=== PATIENT | male | born 1975 | race Caucasian/White ===

== ENCOUNTER 2018-06-19 12:02 | Day surgery (SDC) | payer MEDICARE ==
[2018-06-19] MEDS ORDERED: Marcaine 0.5% SDV 10 ML IJ ONE (12:03)
[2018-06-19] MEDS ORDERED: DIPRIVAN 200 MG/20 ML IV ONE (12:03)
[2018-06-19] MEDS ORDERED: Depo-Medrol 40 MG/ML IM ONE (12:03)
[2018-06-19] MEDS ORDERED: Lactated Ringers 1,000 ML IV ONE (12:40)
--- NOTE | 2018-06-19 15:22 | XRAY ---
Indication: Posterior 2/3 rib injection. Intraoperative fluoroscopy was provided for 26 seconds. 3 digital spot images submitted for interpretation demonstrates needle tips projecting over the posterior arcs of the 2nd and 3rd ribs. Correlate with intraoperative findings/report.
--- NOTE | 2018-06-24 14:00 | XRAY ---
26 seconds fluoroscopy time in surgery for injection of posterior 2nd and 3rd ribs.
== END 2018-06-19 13:50 | disposition home or self-care (01) ==
LOC: SDC-PAIN 12:02
PROVIDERS: ATTEND Psychiatry & Neurology Pain Medicine
DX: M54.6 Pain in thoracic spine (principal)
CPT/HCPCS: 64421; 71045; 76000; J1030; J2704

== ENCOUNTER 2018-09-02 11:06 | Observation (INO) | payer MEDICARE ==
--- NOTE | 2018-09-02 08:39 | HP ---
DATE OF SURGERY: 09/02/2018 HISTORY OF PRESENT ILLNESS: The patient is a 43 year-old with right upper quadrant pain on and off for a couple of weeks. No nausea or vomiting. Bowel movements normal. He had ultrasound showing cholelithiasis. He has history of some muscular dystrophy, history of back pain. PAST MEDICAL HISTORY: Includes FSHD muscular dystrophy. PAST SURGICAL HISTORY: He denied any prior abdominal surgeries. He does have a laxity of his abdominal wall secondary to muscular dystrophy. MEDICATIONS: Gabapentin, CoQ10, vitamin D, multivitamins, tramadol, [place] PRN, testosterone. ALLERGIES: NKDA. FAMILY HISTORY: Myocardial infarction and stroke. SOCIAL HISTORY: Occasional few drinks every couple weeks, denies alcohol abuse. REVIEW OF SYSTEMS: Twelve systems reviewed. No chest pain or palpitations other systems negative or noncontributory as above and per preadmission questionnaire. PHYSICAL EXAMINATION: GENERAL: No acute distress. HEENT: Sclerae nonicteric. NECK: No JVD. CHEST: Equal excursion, nonlabored breathing. CVS: Regular rate and rhythm. ABDOMEN: Soft. No peritoneal signs. He had some mild tenderness right upper quadrant. EXTREMITIES: No edema. NEURO: Alert, oriented, moving extremities symmetrically. No gross motor deficits noted. LAB DATA AND TESTS: When he was in the emergency room he had normal liver function test and lipase. Total protein elevated at 8.5. Hemoglobin 16. Ultrasound as mentioned above. IMPRESSION: Symptomatic cholelithiasis, chronic cholecystitis. I feel the patient will benefit from cholecystectomy. Risks and benefits explained in detail including but not limited to bleeding or infection, risk of trocar injury or hernia, small risk of bowel, bladder or blood vessel injury, small risk of bile leak, bile duct injury, retained stone or sludge possibly requiring ERCP or open procedure, general risk of anesthesia, deep venous thrombosis, pulmonary embolism, pneumonia, perioperative risk of aches, pains, bloating, constipation and/or loose stools possibly chronic in nature. General risk of anesthesia, deep venous thrombosis, pulmonary embolism or pneumonia, possibility that this procedure may not improve his symptoms. He may need further work up and/or testing, other studies or procedures. He understands and agrees to the planned procedure, will proceed with outpatient laparoscopic cholecystectomy possible open.
[~2018-09-02 11:06] MED LIST: Lactated Ringers 1,000 ML IV ONE; Sensorcaine 0.25% 10 ML ONE
[2018-09-02] MEDS: Lactated Ringers 1,000 ML IV SCH ×2 (11:20→16:31)
[2018-09-02] MEDS ORDERED: MEFOXIN 2 GM PREMIX** 2 GM/50 ML ML IV SCH (12:00)
[2018-09-02] MEDS ORDERED: APRESOLINE 20 MG/ML INJ IV ONE (12:43)
[2018-09-02] MEDS ORDERED: SUBLIMAZE 250 MCG/5 ML IV ONE (12:43)
[2018-09-02] MEDS ORDERED: MORPHINE SULFATE 10 MG/ML IV ONE (12:43)
[2018-09-02] MEDS ORDERED: BRIDION 200MG/2ML IV ONE (12:43)
[2018-09-02] MEDS ORDERED: Zemuron 100 MG/10 ML IV ONE (12:43)
[2018-09-02] MEDS ORDERED: DIPRIVAN 200 MG/20 ML IV ONE (12:43)
[2018-09-02] MEDS ORDERED: Propofol 1000 mg/100 ml Bottle IV ONE (12:43)
[2018-09-02] MEDS ORDERED: Versed 2 MG/2 ML Injection IV ONE (12:43)
[2018-09-02] MEDS ORDERED: SUBLIMAZE 100 MCG/2 ML IV ONE (12:43)
[2018-09-02] MEDS ORDERED: Zofran 4 MG/2 ML VIAL IV ONE (12:43)
[2018-09-02] MEDS ORDERED: BREVIBLOC 100 MG/10 ML IV ONE (12:43)
[2018-09-02] MEDS ORDERED: DILAUDID 2 MG INJECTION ONE (14:27)
[2018-09-02] MEDS ORDERED: MORPHINE SULFATE 2 MG INJ IV PRN (15:17)
[2018-09-02] MEDS ORDERED: Zofran 4 MG/2 ML VIAL IV PRN (15:18)
--- NOTE | 2018-09-02 15:26 | OP ---
SURGERY DATE/TIME: 09/02/2018 1248 PREOPERATIVE DIAGNOSIS: Acute exacerbation of chronic cholecystitis. POSTOPERATIVE DIAGNOSIS: Acute exacerbation of chronic cholecystitis. PROCEDURE: Laparoscopic cholecystectomy. SURGEON: Dr. Giles Marvin. ANESTHESIA: General. ESTIMATED BLOOD LOSS: Minimal. INDICATIONS: As noted above. Risks and benefits explained in detail but not limited to and consent obtained. He wanted to go ahead and proceed accepting small risk of oozing or bleeding. DESCRIPTION OF PROCEDURE AND FINDINGS: The patient was taken to the OR. General anesthesia induced. He accepted the increased risk of bleeding or oozing if he failed to follow instructions in the holding area discussed preoperatively. He was taken to the OR. General anesthesia induced. Abdomen prepped and draped in the usual sterile fashion. After official time out and no disagreement with planned procedure, a transverse incision made at the supraumbilical area. Fascia grasped and pulled upward. Veress needle inserted and tested with saline. Pneumoperitoneum accomplished insufflating opening pressure of 0-15. An 11 mm bladeless port and camera inserted without difficulty followed by two - 5 mm right upper quadrant ports and 11 mm epigastric port. The gallbladder was quite distended. It was tense, difficult to grasp. It was necessary to make a little counter incision with Veress needle aspirating 23 cc of bile out of the gallbladder. The gallbladder is able to be more easily grasped. Extensive chronic inflammatory reaction. Posterior, lateral to anterior fashion slowly and carefully cystic duct, infundibular junction slowly well skeletonized until critical view obtained both anterior and posteriorly until critical view obtained. Cystic duct clipped x3 and divided in usual fashion. The cystic artery isolated directly on the gallbladder wall. It was clipped x3 and divided in the usual fashion. Gallbladder was slowly and carefully dissected free from its dense almost concrete reaction to liver bed staying directly on the gallbladder wall clipping additional oozing side branches of the cystic artery as necessary. The gallbladder is quite friable with just the graspers seeping some bile and some small stone/sludge and this was suction irrigated as well as possible. It took some time but slowly and carefully the gallbladder was dissected free from the liver bed. Just prior to releasing from the final attachments to anterior edge of liver clips noted in place in cystic duct and cystic artery stumps. No signs of any active bleeding or bile leakage in the liver bed and cystic duct stump itself or cystic arteries. The gallbladder is released from its final attachments placed in as Pleatman sac pulled up and out the epigastrium. The Pleatman sac actually broke for a usual case but the gallbladder was able to be carefully mobilized upwards, removed and passed off. Fascia defect closed with puncture closure device with 0 Vicryl placed at the end of the procedure. Port is replaced. Copious amount of irrigation accomplished laterally. Subhepatic space irrigated until clear. A few little tiny stones/sludge were retrieved, suctioned and irrigated. Irrigated as clear as possible. Because of the extensive inflammatory reaction and had been on NSAID's, I felt would benefit from temporary REUBEN drain placement to decrease risk of collection formation placed in subhepatic space out through lateral port incision, secured with PDS suture and placed to bulb suction. Pneumoperitoneum decompressed. The wound was irrigated out. Skin incision closed with 4-0 Vicryl. Steri-Strips and sterile dressing applied. 0.25% Marcaine local injected along the skin incision fascial defect. The patient tolerated the procedure well. There were no immediate complications. Findings discussed with the family out in the waiting area. The patient was transferred to the recovery room in stable condition.
[2018-09-02] MEDS ORDERED: TESTOSTERONE ENANTHATE SQ SCH (15:30)
[2018-09-02] MEDS ORDERED: CANNABIDIOL PO SCH (15:30)
[2018-09-02] MEDS ORDERED: EXTRACT PO SCH (15:30)
[2018-09-02] MEDS ORDERED: MEDICATION INTERVENTION MC SCH ×3 (15:45)
[2018-09-02] MEDS: MOTRIN 400 MG PO SCH ×2 (16:26→22:00)
[2018-09-02] MEDS: NEURONTIN 300 MG PO SCH ×2 (16:26→22:01)
[2018-09-02 17:59] LABS: Appearance CLEAR (CLEAR); Bilirubin NEGATIVE (NEGATIVE); Blood NEGATIVE Ery/ul (0-5); Glucose NEGATIVE (NEGATIVE); Ketones SMALL (NEGATIVE); Leukocyte Esterase NEGATIVE (NEGATIVE); Nitrite NEGATIVE (NEGATIVE); Protein,Urine Dip NEGATIVE (Negative); Specific Gravity 1.012 (1.005-1.025); Urobilinogen NEGATIVE mg/dL (0-1)
[2018-09-02 18:05] LABS: Bacteria NONE SEEN /HPF (NEGATIVE); RBC NONE SEEN /HPF (0-2)
[2018-09-02] MEDS ORDERED: ULTRAM 50 MG PO SCH (22:00)
[2018-09-03] MEDS: NORCO 5/325 MG PO PRN ×2 (05:10→09:57)
[2018-09-03 08:21] VITALS: O2SAT 97
[2018-09-03] MEDS: NEURONTIN 300 MG PO SCH (09:57)
[2018-09-03] MEDS: MOTRIN 400 MG PO SCH (09:57)
[2018-09-03] MEDS ORDERED: UBIDECARENONE 200 MG PO SCH (10:00)
--- NOTE | 2018-09-03 11:46 | PCM.SSS ---
History of Present Illness - Chief Complaint Chief Complaint: s/p Lap Cholecystectomy History of Present Illness: is a 43 year old male.pmhx of myotonic muscular dystrophy admitted for cholecystectomy. - Review of Systems Constitutional: No Fever, No Chills Eyes: No Symptoms Ears, Nose, & Throat: No Symptoms Respiratory: No Cough, No Short Of Breath Cardiac: No Chest Pain, No Edema, No Syncope Abdominal/Gastrointestinal: No Abdominal Pain, No Nausea, No Vomiting, No Diarrhea Genitourinary Symptoms: No Dysuria Musculoskeletal: No Back Pain, No Neck Pain Skin: No Rash Neurological: No Dizziness, No Focal Weakness, No Sensory Changes Psychological: No Symptoms Endocrine: No Symptoms Hematologic/Lymphatic: No Symptoms Immunological/Allergic: No Symptoms Medications & Allergies Home Medications: Home Medication List Cannabidiol (Cbd) Extract [Epidiolex] 100 mg PO UD 08/29/18 [History Confirmed 09/02/18] Gabapentin [Neurontin] 300 mg PO TID 08/29/18 [History Confirmed 09/02/18] Testosterone Enanthate [Xyosted] 100 mg SQ UD 08/29/18 [History Confirmed ] Tramadol HCl 50 mg [Ultram 50 mg] 50 mg PO HS 08/29/18 [History Confirmed 09/02/18] Ubidecarenone [Co Q-10] 200 mg PO DAILY 08/29/18 [History Confirmed 09/02/18] Ibuprofen 200 mg [Motrin 200 mg] 400 mg PO TID 09/02/18 [History Confirmed 09/02/18] Allergies/Adverse Reactions: Allergies Allergy/AdvReac Type Severity Reaction Status Date / Time No Known Drug Allergies Allergy Verified 09/02/18 11:24 - Past Medical History Past Medical History: Yes Neurological History: No Pertinent History ENT History: No Pertinent History Cardiac History: No Pertinent History Respiratory History: No Pertinent History Endocrine Medical History: No Pertinent History Musculoskelatal History: Muscular Dystrophy GI Medical History: GERD History: No Pertinent History Pyscho-Social History: No Pertinent History Male Reproductive Disorders: No Pertinent History Comment: Dianna muscular dystrophy - Past Surgical History Past Surgical History: No Neuro Surgical History: No Pertinent History Cardiac History: No Pertinent History Respiratory Surgery: No Pertinent History GI Surgical History: No Pertinent History Genitourinary Surgical Hx: No Pertinent History Musculskeletal Surgical Hx: No Pertinent History Male Surgical History: No Pertinent History - Social History Smoking Status: Never smoker Exposure to second hand smoke: No Alcohol: None, Weekly Drug Use: none - Physical Exam Vital Signs: Vital Signs - 24 hr Temp Pulse Resp BP Pulse Ox 09/03/18 08:00 98.4 F 67 16 101/61 97 09/03/18 04:00 97.9 F 64 20 112/66 99 09/03/18 00:00 99.1 F 89 20 108/62 96 09/02/18 20:00 98.9 F 91 H 18 116/65 98 09/02/18 17:30 101 H 16 136/71 96 09/02/18 16:30 104 H 16 118/62 96 09/02/18 16:00 101 H 16 118/64 95 09/02/18 15:30 98 H 16 134/71 98 09/02/18 15:24 97.6 F 85 18 134/71 99 09/02/18 15:15 88 16 124/71 96 09/02/18 15:00 85 16 133/66 97 09/02/18 11:49 99.8 F 89 18 122/88 97 General Appearance: no apparent distress, alert Neurologic Exam: alert, oriented x 3, cooperative, normal mood/affect, nml cerebellar function, nml station & gait, sensation nml, No motor deficits Eye Exam: PERRL/EOMI, eyes nml inspection Ears, Nose, Throat Exam: normal ENT inspection, TMs normal, pharynx normal, moist mucous membranes Neck Exam: normal inspection, non-tender, supple, full range of motion Respiratory Exam: normal breath sounds, lungs clear, No respiratory distress Cardiovascular Exam: regular rate/rhythm, normal heart sounds, normal peripheral pulses Gastrointestinal/Abdomen Exam: soft, normal bowel sounds, No tenderness, No mass Back Exam: normal inspection, normal range of motion, No CVA tenderness, No vertebral tenderness Extremity Exam: normal inspection, normal range of motion, pelvis stable Skin Exam: normal color, warm, dry, No rash Lymphatic Exam: No adenopathy Results - Labs Lab/Micro Results: Lab Results-Last 24 Hours 09/02/18 Range/Units 17:50 Urine Color YELLOW (YELLOW) Urine Appearance CLEAR (CLEAR) Urine pH 6.0 (5-6) Ur Specific [place] 1.012 (1.005-1.025) Urine Protein NEGATIVE (Negative) Urine Ketones SMALL (NEGATIVE) Urine Blood NEGATIVE (0-5) Tyree/ul Urine Nitrite NEGATIVE (NEGATIVE) Urine Bilirubin NEGATIVE (NEGATIVE) Urine Urobilinogen NEGATIVE (0-1) mg/dL Ur Leukocyte Esterase NEGATIVE (NEGATIVE) Urine WBC (Auto) NONE (0-5) /HPF Urine RBC (Auto) NONE SEEN (0-2) /HPF U Epithel Cells (Auto) NONE (FEW) /HPF Urine Bacteria (Auto) NONE SEEN (NEGATIVE) /HPF Urine Culture Reflexed NO (NO) Urine Glucose NEGATIVE (NEGATIVE) mg/dL Assessment/Plan (1) Myotonic muscular dystrophy Current Visit: Yes Status: Acute Code(s): G71.11 - MYOTONIC MUSCULAR DYSTROPHY (2) Status post cholecystectomy Current Visit: Yes Status: Acute Code(s): Z90.49 - ACQUIRED ABSENCE OF OTHER SPECIFIED PARTS OF DIGESTIVE TRACT Hospital Summary - Hospital Course Hospital Course: Last Vital Signs Temp 98.4 F 09/03/18 08:00 Pulse 67 09/03/18 08:00 Resp 16 09/03/18 08:00 BP 101/61 09/03/18 08:00 Pulse Ox 97 09/03/18 08:00 Allergies No Known Drug Allergies Allergy (Verified 09/02/18 11:24) Active Medications Hydrocodone Bitart/Acetaminophen ([place] 5/325 Mg) 1 tab PO Q4H PRN PRN Stop: 09/07/18 15:16 Last Admin: 09/03/18 09:57 Dose: 1 tab Gabapentin (Neurontin 300 Mg) 300 mg PO TID BETSY Stop: 10/02/18 15:29 Last Admin: 09/03/18 09:57 Dose: 300 mg Lactated Ringer's (Lactated Ringers) 1,000 mls @ 50 mls/hr IV .Q20H BETSY Stop: 10/02/18 11:29 Last Admin: 09/02/18 16:31 Dose: 50 mls/hr Ibuprofen (Motrin 400 Mg) 400 mg PO TID BETSY Stop: 10/02/18 15:29 Last Admin: 09/03/18 09:57 Dose: 400 mg Miscellaneous Information (Medication Intervention) 1 each MC .RN TO CHECK ON BETSY Stop: 10/02/18 15:44 Miscellaneous Information (Medication Intervention) 1 each MC .RN TO CHECK ON BETSY Stop: 10/02/18 15:44 Miscellaneous Information (Medication Intervention) 1 each MC .RN TO CHECK BETSY Stop: 10/02/18 15:44 Morphine Sulfate (Morphine Sulfate 2 Mg Inj) 2 mg IV Q1H PRN PRN Stop: 09/07/18 15:16 Ondansetron HCl (Zofran 4 Mg/2 Ml Vial) 4 mg IV Q6H PRN PRN PRN Reason: NAUSEA/VOMITING Stop: 10/02/18 15:17 Last Admin: 09/02/18 16:52 Dose: 4 mg Tramadol HCl (Ultram 50 Mg) 50 mg PO HS BETSY Stop: 10/02/18 21:59 Last Admin: 09/02/18 22:01 Dose: 50 mg Intake & Output 09/02/18 09/03/18 11:59 11:59 Intake Total 3704 Output Total 1790 Balance 1914 Weight 85 kg 90 kg Orders 09/02/18 13:52 Surgical Pathology Routine 09/02/18 14:[address] in Observation ROUTINE 09/02/18 15:19 Miscellaneous Nursing Order ROUTINE 09/02/18 16:10 OT Screen per Nursing Assess ONCE 09/02/18 17:33 Catheter Care Record Q6H Sanchez [Catheter-Augusta Sanchez] STAT 09/02/18 18:36 Infection Control Consult ROUTINE Lab Tests 09/02/18 17:50 Urine Color YELLOW Urine Appearance CLEAR Urine pH 6.0 Ur Specific [place] 1.012 Urine Protein NEGATIVE Urine Ketones SMALL Urine Blood NEGATIVE Urine Nitrite NEGATIVE Urine Bilirubin NEGATIVE Urine Urobilinogen NEGATIVE Ur Leukocyte Esterase NEGATIVE Urine WBC (Auto) NONE Urine RBC (Auto) NONE SEEN U Epithel Cells (Auto) NONE Urine Bacteria (Auto) NONE SEEN Urine Culture Reflexed NO Urine Glucose NEGATIVE - Vitals & Intake/Output Vital Signs: Vital Signs Temperature 98.4 F 09/03/18 08:00 Pulse Rate 67 09/03/18 08:00 Respiratory Rate 16 09/03/18 08:00 Blood Pressure 101/61 09/03/18 08:00 O2 Sat by Pulse Oximetry 97 09/03/18 08:00 Intake & Output: Intake & Output 08/31/18 09/01/18 09/02/1829/19 11:59 11:59 11:59 11:59 Intake Total 3704 Output Total 1790 Balance 1914 Weight 85 kg 90 kg - Lab Lab Results-Last 24 Hrs: Lab Results-Last 24 Hours 09/02/18 Range/Units 17:50 Urine Color YELLOW (YELLOW) Urine Appearance CLEAR (CLEAR) Urine pH 6.0 (5-6) Ur Specific [place] 1.012 (1.005-1.025) Urine Protein NEGATIVE (Negative) Urine Ketones SMALL (NEGATIVE) Urine Blood NEGATIVE (0-5) Tyree/ul Urine Nitrite NEGATIVE (NEGATIVE) Urine Bilirubin NEGATIVE (NEGATIVE) Urine Urobilinogen NEGATIVE (0-1) mg/dL Ur Leukocyte Esterase NEGATIVE (NEGATIVE) Urine WBC (Auto) NONE (0-5) /HPF Urine RBC (Auto) NONE SEEN (0-2) /HPF U Epithel Cells (Auto) NONE (FEW) /HPF Urine Bacteria (Auto) NONE SEEN (NEGATIVE) /HPF Urine Culture Reflexed NO (NO) Urine Glucose NEGATIVE (NEGATIVE) mg/dL - Procedures and Test Procedures and Tests throughout Hospitalization: Therapy Orders & Screens 09/02/18 16:10 OT Screen per Nursing Assess ONCE Comment: Protocol Order Physician Instructions: Greater than 3 points order OT Admission Screening Reason For Exam: Triggered on Admission Diagnosis: s/p Lap Cholecystectomy Open Wound/Cellutlitis/Pressure Ulcers: No Acute Fx/ORIF/Change in wt bearing status: No Severe MUSCULOSKELETAL pain: No ADL Dysfunction: Yes Acute CVA w/Hemiparesis/Hemiplegia: No Decreased Functional Mobility/Strength: Yes Sprain/Strain: No Acute Post-op Mobility Dysfunction: No Total Points: 4 - Discharge Discharge Date: 09/03/18 Disposition: Home, Self-Care Condition: Stable Prescriptions: No Action Testosterone Enanthate [Xyosted] 100 mg SQ UD Gabapentin [Neurontin] 300 mg PO TID Ubidecarenone [Co Q-10] 200 mg PO DAILY Cannabidiol (Cbd) Extract [Epidiolex] 100 mg PO UD Tramadol HCl 50 mg [Ultram 50 mg] 50 mg PO HS Ibuprofen 200 mg [Motrin 200 mg] 400 mg PO TID Follow up with: JONATHAN STACK [COURTESY STAFF] - 09/09/18 8:35 am ([facility] located at [facility] HIRAL ENRIQUE MD [Primary Care Provider] - 09/12/18 9:30 am
[2018-09-03 13:09] VITALS: BP 109/65; PULSE 69
== END 2018-09-03 12:44 | disposition home or self-care (01) ==
LOC: SDC 11:06 → MED SURG 14:59 → SDC 14:59 → MED SURG 14:59
PROVIDERS: ADMIT General Practice; ATTEND General Practice
DX: K81.0 Acute cholecystitis (principal); G71.11 Myotonic muscular dystrophy; Z79.899 Other long term (current) drug therapy
CPT/HCPCS: 47562; 81001; G0378; J0360; J0694; J1170; J2250; J2270; J2405; J2704; J3010; A9270-GY

== ENCOUNTER 2019-10-07 18:19 | Emergency (ER) | payer MEDICARE ==
[2019-10-07] MEDS ORDERED: XYLOCAINE 1% HCL 20 ML MDV ONE (18:33)
--- NOTE | 2019-10-07 18:47 | ERPHSYRPT ---
- History of Present Illness Time Seen by Provider: 10/07/19 18:21 Source: patient Exam Limitations: no limitations Physician History: Patient is here with fall and laceration to the left forehead. Just prior to arrival patient was at home. He had a mechanical fall. He tripped over the transition from the tile kitchen to the rug living room. Patient has a history of muscular dystrophy. Therefore, has difficulty ambulating at the best of times. This uneven surface made him fall he states. Patient now has laceration. He is unsure if he had loss of consciousness. He reports no syncopal feelings, chest pain, shortness of breath. He is not on any blood thinners. Location: left forehead Quality: laceration Radiation: none Severity: moderate Duration: just [employer]OR [employer]JUST[employer] Timing: after fall Modifying factors/associated signs and symptoms: none tried Allergies/Adverse Reactions: No Known Drug Allergies Allergy (Verified 10/07/19 18:40) Home Medications: Gabapentin [Neurontin] 300 mg PO BID 08/29/18 [History] Tramadol HCl 50 mg [Ultram 50 mg] 50 mg PO HSPRN PRN 08/29/18 [History] Ibuprofen 200 mg [Motrin 200 mg] 400 mg PO TID 09/02/18 [History] Loratadine 10 mg [Claritin 10 mg] 10 mg PO DAILY 10/07/19 [History] Multivitamin/Iron/Folic Acid [Centrum Adults Tablet] 1 each PO DAILY 10/07/19 [ History] - Review of Systems Constitutional: No Fever, No Chills Eyes: No Symptoms Ears, Nose, & Throat: No Symptoms Respiratory: No Cough, No Dyspnea Cardiac: No Chest Pain, No Edema, No Syncope Abdominal/Gastrointestinal: No Abdominal Pain, No Nausea, No Vomiting, No Diarrhea Genitourinary Symptoms: No Dysuria Musculoskeletal: No Back Pain, No Neck Pain Skin: Other (right facial laceration ), No Rash Neurological: No Dizziness, No Focal Weakness, No Sensory Changes Psychological: No Symptoms Endocrine: No Symptoms All Other Systems: Reviewed and Negative - Past Medical History Pertinent Past Medical History: Yes Neurological History: No Pertinent History ENT History: No Pertinent History Cardiac History: No Pertinent History Respiratory History: No Pertinent History Endocrine Medical History: No Pertinent History Musculoskeletal History: Muscular Dystrophy GI Medical History: GERD History: No Pertinent History Psycho-Social History: No Pertinent History Male Reproductive Disorders: No Pertinent History Other Medical History: F.S.HKeshaDKesha muscular dystrophy - Past Surgical History Past Surgical History: No Neuro Surgical History: No Pertinent History Cardiac: No Pertinent History Respiratory: No Pertinent History Gastrointestinal: No Pertinent History Genitourinary: No Pertinent History Musculoskeletal: No Pertinent History Male Surgical History: No Pertinent History - Social History Smoking Status: Never smoker Exposure to second hand smoke: No Drug Use: none - Nursing Vital Signs Nursing Vital Signs: Initial Vital Signs Temperature 97.4 F 10/07/19 18:24 Pulse Rate 73 10/07/19 18:24 Respiratory Rate 16 10/07/19 18:24 Blood Pressure 156/96 10/07/19 18:24 O2 Sat by Pulse Oximetry 97 10/07/19 18:24 Pain Scale Pain Intensity 0 - Tammie Coma Score Best Eye Response ([place]): (4) open spontaneously Best Verbal Response ([place]): (5) oriented Best Motor Response ([place]): (6) obeys commands [place] Total: 15 - Physical Exam General Appearance: no apparent distress, alert Head Injury: active bleeding (left forehead laceration. 3.0 cm. ) Eye Exam: PERRL/EOMI ENT Exam: airway nml Neck Exam: normal inspection, No tenderness Respiratory/Chest Exam: normal breath sounds, No chest tenderness, No respiratory distress Cardiovascular Exam: normal heart sounds, regular rate/rhythm Gastrointestinal Exam: soft, No tenderness, No distention, No guarding, No ecchymosis Back Exam: normal inspection, No vertebral tenderness Extremity Exam: normal inspection, normal range of motion, pelvis stable, No deformities Neurologic Exam: alert, oriented x 3, cooperative, sensation nml, No motor deficits Skin Exam: normal color, warm, dry SpO2 Interpretation: normal Comment: Neurological exam consistent with history of muscular dystrophy. Procedures - Laceration/Wound Repair Head Wound Location: Left Wound Length (cm): 3 Wound's Depth, Shape: linear Wound Explored: clean Irrigated: Yes Hibiclens Prep: Yes Anesthesia: 1% Lidocaine Volume Anesthetic (ccs): 5 Wound Debrided: minimal Wound Repaired With: sutures Suture Size/Type: 4-0, prolene Number of Sutures: 5 Layer Closure?: No Sterile Dressing Applied?: Yes Splint Applied?: No Ordered Tests: Active Orders 24 hr Category Date Time Status CERVICAL SPINE WO CONTRAST [CT] Stat Exams 10/07/19 18:31 Taken HEAD WITHOUT CONTRAST [CT] Stat Exams 10/07/19 18:31 Taken Medication Summary Discontinued Medications Generic Name Dose Route Start Last Admin Trade Name Lula PRN Reason Stop Dose Admin Lidocaine HCl Confirm 10/07/19 18:33 Xylocaine 1% Hcl 20 Ml Mdv Administered 10/07/19 18:34 Dose 10 ml .ROUTE .STK-MED ONE Tetanus/Diphtheria Toxoids Adsorbed 0.5 ml 10/07/19 18:32 10/07/19 19:14 Tenivac Vial IM 10/07/19 18:33 0.5 ml .ONCE ONE Administration Tetanus/Diphtheria Toxoids Adsorbed Confirm 10/07/19 19:13 Tenivac Vial Administered 10/07/19 19:14 Dose 0.5 ml IM .STK-MED ONE - Progress Progress: improved Progress Note: 10/07/19 18:45 Laceration was repaired. See procedure note for full details. We did obtain a head CT, CT C-spine. This returned negative for head bleed or fracture. Patient will need sutures out in 5 days. He will follow-up with his PCP for neurological reexam in 24 to 40 hours. They are return here for new or changing symptoms. Plan of care was discussed with patient and patient's family: all questions answered. They are agreeable to be discharged home and both verbal and printed discharge instructions were provided. The patient and patient's family agreed to seek outpatient follow up as discussed. They were given strict instructions to return to the emergency department for Counseled pt/family regarding: diagnosis, need for follow-up - Departure Departure Disposition: Home Clinical Impression: Facial laceration, Head contusion Condition: Stable Critical Care Time: No Referrals: HIRAL ENRIQUE MD [Primary Care Provider] - Instructions: Concussion, Adult (DC), Closed Head Injury (DC) Additional Instructions: suture removal in 5 days, repeat exam in 24-48 hours with PCP
[2019-10-07 18:52] VITALS: O2SAT 97
[2019-10-07] MEDS ORDERED: TENIVAC VIAL IM ONE (19:13)
[2019-10-07] MEDS: TENIVAC VIAL IM ONE (19:14)
[2019-10-07 19:55] VITALS: BP 118/92; PULSE 78
--- NOTE | 2019-10-08 08:36 | XRAY ---
Indication: Left head injury following fall. Multiple contiguous axial images obtained through the head without contrast. Comparison: None Normal appearing brain parenchyma, ventricles, and bony calvarium. Mild left religious soft tissue swelling/laceration. Visualized paranasal sinuses and mastoid air cells are clear. Impression: Left religious soft tissue swelling/laceration. Remaining CT head without contrast exam is normal.
--- NOTE | 2019-10-08 08:38 | XRAY ---
Indication: Left head injury following fall. Multiple contiguous axial images obtained through the cervical spine. Sagittal and coronal reformatted images obtained. Comparison: None Axial images negative for acute fracture, suspicious bony lesions, or spinal canal stenosis. Moderate C5-C7 degenerative endplate spurring. Sagittal and coronal reformatted images demonstrates cervical lordotic reversal, positional versus paraspinal spasm. Mild C5-C6 disc space narrowing. No acute compression fracture, subluxation, or jumped facet. Normal appearing craniocervical junction. Visualized noncontrasted soft tissues including lung apices are unremarkable. Impression: 1. Negative for acute fracture/subluxation. 2. Cervical lordotic reversal, positional versus paraspinal spasm. 3. C5-C7 degenerative changes.
== END 2019-10-07 19:55 | disposition home or self-care (01) ==
LOC: ED 18:19
DX: S01.81XA Laceration without foreign body of other part of head, initial encounter (principal); W01.198A Fall on same level from slipping, tripping and stumbling with subsequent striking against other object, initial encounter; S00.93XA Contusion of unspecified part of head, initial encounter
CPT/HCPCS: 12013; 70450; 72125; 90471; 90714; 99284